=== PATIENT | male | born 1990 | race Caucasian/White ===

== ENCOUNTER 2020-09-08 23:10 | Emergency (ER) | payer SELFPAY ==
[~2020-09-08] VITALS: Ht 177.8 cm; Wt 94.3 kg
[2020-09-08 23:25] VITALS: BP 142/84
--- NOTE | 2020-09-08 23:25 | NUR ---
PT TAKEN TO CHAIR C
--- NOTE | 2020-09-09 | NUR ---
PT ASSESSMENT COMPLETED BY JACKELIN , NO NURSING INTERVENTIONS NEEDED AT THIS TIME.
[2020-09-09 00:05] VITALS: BP 142/84
--- NOTE | 2020-09-09 00:05 | NUR ---
Patient discharged with v/s stable. Written and verbal after care instructions given and explained. Patient verbalized understanding. Ambulatory gait in P custody. All questions addressed prior to discharge. Advised to follow up with PMD.
== END 2020-09-09 00:05 | disposition home or self-care (01) ==
LOC: MED 23:10
DX: F10.129 Alcohol abuse with intoxication, unspecified (principal); M79.10 Myalgia, unspecified site; Z02.89 Encounter for other administrative examinations; Y90.9 Presence of alcohol in blood, level not specified
CPT/HCPCS: 99283